=== PATIENT | male | born 1975 | race Caucasian/White ===

== ENCOUNTER 2020-11-28 13:33 | Emergency (ER) | payer OTHER, SELFPAY ==
[2020-11-28 13:49] VITALS: BP 126/83; PULSE 77; RESP 16; TEMP 36.9; O2SAT 96; BMI 30.4
[2020-11-28 15:08] VITALS: O2SAT 96
--- NOTE | 2020-11-28 15:08 | ECG_ITS ---
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 Measurements Intervals [place] Rate: 68 P: 37 HI: 172 QRS: 5 QRSD: 95 T: 31 QT: 341 QTc: 363 Interpretive Statements SINUS RHYTHM POSSIBLE INFERIOR MYOCARDIAL INFARCTION [30 ms Q WAVE IN II/aVF], OF INDETERMINATE AGE No previous ECG available for comparison Electronically Signed On 11-29-2020 7:23:16 CDT by Ernestina Moreno M.D. [email or web address] Internationalveterans health administrationHunington Properties/store/NU/[id number] f
--- NOTE | 2020-11-28 15:08 | XR_ITS ---
WS: [id number] PORTABLE CHEST HISTORY: chest pain COMPARISON: None available. Lungs are clear and well expanded. No pleural effusion or pneumothorax. Cardiac size: Normal. Mediastinum/Aorta: Normal mediastinum. Healed rib fractures in the posterior mid RIGHT thorax. XR/XR chest 1V portable [id number] IMPRESSION: Unremarkable portable chest.
--- NOTE | 2020-11-28 15:19 | W.ED.CHESTPA ---
HPI - Chest Pain General: Chief Complaint: Chest Pain Stated Complaint: CHEST PAIN, SOB Time Seen by Provider: 11/28/20 15:08 History of Present Illness: HPI narrative: 45-year-old male presents emergency room with complaints of chest pain. Began while he was at work he denies nausea or vomiting no diaphoresis was a dull ache by the time he arrived here he has not had any shortness of breath or cough no diarrhea no anosmia. Pain did not radiate into his neck or his arm. He has not previously had episodes like this it has decreased since that initially began. He has not noticed anything that either exacerbates or relieves it. This first began this morning while he was at work. MD complaint: chest pain Onset (ago): hour(s) Timing of current episode: episodic Onset: during rest Pain location: left chest Pain radiation: none Severity: moderate Quality: tightness and aching Relieving factors: nothing Exacerbating factors: nothing Associated symptoms: Deny abdominal pain, diaphoresis, dyspnea, fever(s), leg edema, nausea, palpitations, sense of impending doom, syncope, vomiting or other Treatment prior to arrival: none Review of Systems Const: Denies: fever(s) or diaphoresis ENMT: Denies: throat pain, ear or mastoid pain, nasal discharge or nasal congestion Card: Denies: palpitations or syncope Resp: Denies: dyspnea GI: Denies: abdominal pain, nausea or vomiting : Denies: flank pain, dysuria, urinary frequency or urinary urgency Skin/Breast: Denies: rash or pruritus Physical Exam Const: COMMON NORMALS: no acute distress GENERAL APPEARANCE: cooperative and comfortable ORIENTATION/CONSCIOUSNESS: Yes awake, Yes oriented to person, Yes oriented to place and Yes oriented to time HENMT: COMMON NORMALS: normocephalic, atraumatic, hearing grossly normal bilaterally and external ears normal HEAD & SCALP: normocephalic and atraumatic EXTERNAL EAR: Yes external ears normal Neck/C-Spine: COMMON NORMALS: no JVD Resp: COMMON NORMALS: normal respiratory effort, No retractions, No use of accessory muscles and clear to auscultation bilaterally AUSCULTATION: clear to auscultation bilaterally Cardio: COMMON NORMALS: no JVD, regular rate, regular rhythm and No murmurs present (Cardio) RATE: regular rate RHYTHM: regular rhythm GI: COMMON NORMALS: Soft to palpation and No hepatosplenomegaly present AUSCULTATION: Yes normoactive bowel sounds PALPATION: Yes Soft to palpation, No Tenderness to palpation present (GI), No Guarding due to palpation present (GI) and Yes No hepatosplenomegaly present Extremity: COMMON NORMALS: normal to inspection, capillary refill normal, no clubbing, cyanosis or edema, no calf tenderness and no pedal edema Neuro: SENSORIUM/ORIENTATION: Yes oriented to person, Yes oriented to place and Yes oriented to time Skin: COMMON NORMALS: no rashes or lesions noted GENERAL SKIN EXAM: no rashes or lesions noted Course Vital Signs: Vital signs: Vital Signs Temperature 98.4 F 11/28/20 19:08 Pulse Rate 67 11/28/20 19:08 Respiratory Rate 15 11/28/20 19:08 Blood Pressure 132/93 11/28/20 19:08 Pulse Oximetry 96 11/28/20 19:08 MDM - Chest Pain MDM Narrative: Medical decision making narrative: Troponin is negative EKG is unremarkable will discharge home and set up with stress test return if has problems Lab Data: Labs: Lab Results 11/28/20 11/28/20 11/28/20 Range/Units 15:20 15:20 15:20 WBC 6.9 (4.0-10.0) 10^3/ uL RBC 5.48 H (4.1-5.3) 10^6/u L Hgb 15.8 (11.7-16.6) g/dL Hct 48.2 (42.0-52.0) % MCV 88.0 (80-94) fL MCH 28.8 (28.0-34.0) pg MCHC 32.8 (30.0-36.0) g/dL RDW 12.8 (12.1-15.1) % Plt Count 282 (130-400) 10^3/c mm MPV 9.7 (7.4-10.4) fL Neut % (Auto) 61.5 % Lymph % (Auto) 29.1 % [place] % (Auto) 5.5 % Eos % (Auto) 2.9 % Baso % (Auto) 0.7 % Neut # (Auto) 4.27 (1.8-7.7) 10^3/u L Lymph # (Auto) 2.0 (0.8-4.8) 10^3/u L [place] # (Auto) 0.4 (0.2-0.9) 10^3/u L Eos # (Auto) 0.2 (0.0-0.8) 10^3/u L Baso # (Auto) 0.1 (0.0-0.1) 10^3/u L Nucleated RBC % (a uto) 0 % Nucleated RBCs # 0.0 /100WBC Sodium Cancelled Potassium Cancelled Chloride Cancelled Carbon Dioxide Cancelled Anion Gap Cancelled BUN Cancelled Creatinine Cancelled GFR Calculation Cancelled Glucose Cancelled Calculated Osmolal ity Cancelled Calcium Cancelled Total Bilirubin Cancelled AST Cancelled ALT Cancelled Alkaline Phosphata se Cancelled Troponin T Baselin e Cancelled Troponin T 120 Min [place] (0-15) ng/L Delta Troponin T (0-10) ABS# Total Protein Cancelled Albumin Cancelled Globulin Cancelled 11/28/20 11/28/20 11/28/20 Range/Units 15:50 15:50 18:05 WBC (4.0-10.0) 10^3/ uL RBC (4.1-5.3) 10^6/u L Hgb (11.7-16.6) g/dL Hct (42.0-52.0) % MCV (80-94) fL MCH (28.0-34.0) pg MCHC (30.0-36.0) g/dL RDW (12.1-15.1) % Plt Count (130-400) 10^3/c mm MPV (7.4-10.4) fL Neut % (Auto) % Lymph % (Auto) % [place] % (Auto) % Eos % (Auto) % Baso % (Auto) % Neut # (Auto) (1.8-7.7) 10^3/u L Lymph # (Auto) (0.8-4.8) 10^3/u L [place] # (Auto) (0.2-0.9) 10^3/u L Eos # (Auto) (0.0-0.8) 10^3/u L Baso # (Auto) (0.0-0.1) 10^3/u L Nucleated RBC % (a uto) % Nucleated RBCs # /100WBC Sodium 138 Potassium 4.3 Chloride 102 Carbon Dioxide 23 Anion Gap 17.3 BUN 10 Creatinine 1.0 GFR Calculation 80.8 L Glucose 87 Calculated Osmolal ity 284 L Calcium 9.2 Total Bilirubin 0.2 AST 11 ALT 10 Alkaline Phosphata se 84 Troponin T Baselin e 6 Troponin T 120 Min [place] 6.00 (0-15) ng/L Delta Troponin T 0 (0-10) ABS# Total Protein 6.7 Albumin 4.2 Globulin 2.5 Discharge Plan Discharge Patient Disposition: Home Clinical Impression: Atypical chest pain Condition: Stable Prescriptions: New aspirin 81 mg tablet,delayed release (DR/EC) 81 mg PO DAILY Qty: 30 RF: 0 Discharge Orders: Discharge ED (Routine); Ordered 11/28/20 Ordered By: Chang Sanchez Referrals: Jack Curiel [Primary Care Provider] - Discharge Diet: Usual diet Discharge Activity: Limit activity as instructed Patient Instructions: Opioid Safety Activity Restrictions/Additional Instructions: 81 mg aspirin daily. reservation manager will call to set up a cardiac stress test. If you have recurrent chest pain return to the emergency room. Avoid any exertional activities until the stress test is completed. Stand Alone Forms: Work/School Release Coding Level of Care Code ED Nursing Staffing Coordinator for Stephanie Fwjuan Exam Comprehensive
[2020-11-28 15:29] LABS: Basophils # 0.1 10^3/uL (0.0-0.1); Basophils % 0.7 %; Eosinophils # 0.2 10^3/uL (0.0-0.8); Eosinophils % 2.9 %; Hematocrit 48.2 % (42.0-52.0); Hemoglobin 15.8 g/dL (11.7-16.6); Lymphocytes % 29.1 %; Mean Corpuscular HGB Conc 32.8 g/dL (30.0-36.0); Mean Corpuscular Hemoglobin 28.8 pg (28.0-34.0); Mean Platelet Volume 9.7 fL (7.4-10.4); Monocytes # 0.4 10^3/uL (0.2-0.9); Monocytes % 5.5 %; Neutrophils # 4.27 10^3/uL (1.8-7.7); Neutrophils % 61.5 %; Nucleated Red Blood Cells % 0 %; Platelet Count 282 10^3/cmm (130-400); Red Blood Count 5.48 10^6/uL (4.1-5.3); Red Cell Distribution Width 12.8 % (12.1-15.1); White Blood Count 6.9 10^3/uL (4.0-10.0)
[2020-11-28 16:18] LABS: Alanine Aminotransferase 10 U/L (0-41); Albumin Level 4.2 g/dL (3.5-5.2); Alkaline Phosphatase 84 IU/L (40-130); Aspartate Amino Transferase 11 U/L (0-40); Blood Urea Nitrogen 10 mg/dL (6-20); Calcium 9.2 mg/dL (8.5-10.5); Carbon Dioxide 23 mmol/L (22-29); Chloride 102 mmol/L (98-107); Globulin 2.5 g/dL (1.3-4.6); Glomerular Filtration Rate 80.8 mL/min (90-130); Glucose 87 mg/dL (65-115); Osmolality Calculated 284 mOsm/kg (285-295); Sodium 138 mmol/L (136-145); Total Bilirubin 0.2 mg/dL (0.15-1.2); Total Protein 6.7 g/dL (6.6-8.7)
[2020-11-28 16:20] LABS: Troponin(5th) Baseline 6 ng/L (0-15)
[2020-11-28 16:21] LABS: Anion Gap 17.3 (5-19); Potassium 4.3 mmol/L (3.5-5.1)
[2020-11-28 17:00] VITALS: BP 126/88; PULSE 63; RESP 19; O2SAT 95
[2020-11-28 18:39] LABS: Troponin 5 2HR Delta 0 ABS# (0-10)
[2020-11-28 19:08] VITALS: BP 132/93; PULSE 67; RESP 15; TEMP 36.9; O2SAT 96
--- NOTE | 2020-12-02 08:24 | PC.SOCIAL ---
Sent order for Exercise Treadmill stress test to [facility] Scheduling and confirmation received that it was transmitted successfully.
--- NOTE | 2020-12-02 14:35 | PC.SOCIAL ---
Verified with and she is okay with using and not [facility] for [facility]. NO need to follow up with Molly at [place].
--- NOTE | 2020-12-04 12:20 | PC.SOCIAL ---
[facility] records [facility] per request.
--- NOTE | 2020-12-17 14:46 | DCPLANNER ---
Patient had a stress test scheduled for 12.10.20 - patient did attend appointment.
== END 2020-11-28 19:10 | disposition home or self-care (01) ==
PROVIDERS: Emergency Provider Family Medicine; PCP Family Medicine
DX: R07.89 Other chest pain (principal)
CPT/HCPCS: 71045; 80053; 84484; 85025; 93005; 99284

== ENCOUNTER 2020-12-10 12:15 | Outpatient (CLI) | payer OTHER, SELFPAY ==
[2020-12-10 12:25] VITALS: BMI 30.1
--- NOTE | 2020-12-10 12:26 | ECG_ITS ---
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 Baseline heart rate was 86 beats per minute. Baseline blood pressure was 103/77 millimeters of mercury. Target heart rate was 175 beats per minute. Maximum heart rate achieved was 160, which was 91 % of the target heart rate. Maximum blood pressure was 183/96 millimeters of mercury. Total exercise time was 9 minutes 28 seconds. Maximum METs achieved was 13.5, maximum VO2 was 47.3. The reason for ending the test was maximum effort achieved. The patient complained of shortness of breath during the stress test, which then resolved at the end of the test. ELECTROCARDIOGRAM: BASELINE: Sinus rhythm, normal axis, no significant ST-T changes at the baseline noted. EXERCISE: At the peak exercise level, no significant ST-T changes suggestive of ischemia noted. RECOVERY: During the recovery period, heart rate dropped appropriately. No significant ST-T changes in the recovery suggestive of ischemia noted. CONCLUSION: 1. Exercise capacity good. 2. Heart rate response was appropriate. 3. Blood pressure response was appropriate. 4. Symptoms not suggestive of ischemia. 5. Electrocardiogram portion of the stress test was not suggestive of ischemia. Electronically Signed On 12-12-2020 14:53:06 CDT by VEDA HOPKINS [id number]
[2020-12-10 13:02] VITALS: BP 137/91; PULSE 99
== END 2020-12-10 12:16 | disposition home or self-care (01) ==
LOC: CDL 12:17
PROVIDERS: PCP Family Medicine; Visit Provider Family Medicine
DX: R07.89 Other chest pain (principal)
CPT/HCPCS: 93017

== ENCOUNTER 2021-03-05 15:34 | Outpatient (CLI) | payer OTHER, SELFPAY ==
--- NOTE | 2021-03-05 15:45 | USCV_ITS ---
Angela Dodd Age: 46 Gender: M : 1975 Exam Date: 03/05/2021 15:58 Ordering Phys: Harshil Aguayo M.D ([email or web address]) Technologist: Janelle Briggs Exam Location: [facility] [place] Indication: SHORTNESS OF BREATH BP: 125 / 70 HR: 66 Rhythm: Sinus Technical Quality: Adequate MEASUREMENTS (Male / Female) Normal Values 2D ECHO LV Diastolic Diameter PLAX 3.4 cm 4.2 - 5.9 / 3.9 - 5.3 cm LV Systolic Diameter PLAX 2.4 cm IVS Diastolic Thickness 1.8 cm 0.6 - 1.0 / 0.6 - 0.9 cm IVS Systolic Thickness 2.3 cm LVPW Diastolic Thickness 1.4 cm 0.6 - 1.0 / 0.6 - 0.9 cm LVPW Systolic Thickness 1.5 cm LVOT Diameter 2.0 cm LV Ejection Fraction 2D Teich 55.8 % LV Ejection Fraction MOD 2C 61.6 % LV Ejection Fraction 2C AL 62.2 % LA Diameter 3.1 cm LA Width 3.3 cm LA Height 3.7 cm RA Width 3.2 cm RA Height 4.3 cm Aorta at Sinotubular Diameter 3.1 cm DOPPLER AV Peak Velocity 100.0 cm/s LVOT Peak Velocity 87.7 cm/s AV Area Cont Eq vti 2.5 cm squared AV Area Cont Eq pk 2.8 cm squared MV Area PHT 2.7 cm squared Mitral E to A Ratio 0.8 MV E' Velocity 25.5 cm/s Mitral E to MV E' Ratio 4.4 Mitral E to LV E' Lateral Ratio 4.3 Mitral E to LV E' Septal Ratio 4.5 TR Peak Velocity 156.0 cm/s TR Peak Gradient 9.7 mmHg TV Peak E Velocity 46.0 cm/s Right Atrial Pressure 3.0 mmHg Pulmonary Artery Systolic Pressu 12.7 mmHg PV Peak Velocity 67.0 cm/s RV Acceleration Time 0.2 s RV Ejection Time 0.3 s RV AcT/ET 0.6 FINDINGS Left Ventricle Normal left ventricular size. LV systolic function is borderline low with EF of 45-50%. Mild global hypokinesis. Grade 1 diastolic dysfunction Right Ventricle The right ventricle is normal in size and function. Right Atrium The right atrium is normal in size. Left Atrium The left atrium is normal in size. Mitral Valve Structurally normal mitral valve without significant stenosis or prolapse. There is trace mitral regurgitation. Aortic Valve Structurally normal aortic valve without significant sclerosis or stenosis. There is no aortic regurgitation. Tricuspid Valve Structurally normal tricuspid valve without significant stenosis or regurgitation. Insufficient TR jet to calculate RVSP Pulmonic Valve Structurally normal pulmonic valve without significant stenosis. There is no pulmonic regurgitation. Pericardium Normal pericardium without effusion. Aorta Normal ascending aorta dimension. CONCLUSIONS LV systolic function is borderline low with EF of 45-50% Grade 1 diastolic dysfunction. Trace mitral regurgitation. No comparison studies are available. Harshil Aguayo MD (Electronically Signed) Final Date: 06 March 2021 13:21 S
== END 2021-03-05 15:35 | disposition home or self-care (01) ==
LOC: US 15:36
PROVIDERS: PCP Family Medicine; Visit Provider Internal Medicine
DX: R06.02 Shortness of breath (principal); R07.9 Chest pain, unspecified; I34.0 Nonrheumatic mitral (valve) insufficiency
CPT/HCPCS: 93306

== ENCOUNTER → 2021-09-23 14:04 | Outpatient (BNVA) | payer OTHER, SELFPAY | PROVIDERS: PCP Family Medicine; Referring Provider Nurse Practitioner; Visit Provider Podiatrist Foot & Ankle Surgery | DX: M76.71 Peroneal tendinitis, right leg (principal); F17.200 Nicotine dependence, unspecified, uncomplicated | CPT/HCPCS: 73630; 99203; 99204 ==

== ENCOUNTER 2022-04-04 18:24 | Emergency (ER) | payer OTHER, SELFPAY ==
[2022-04-04 18:34] VITALS: BP 139/84; PULSE 103; RESP 16; TEMP 36.5; O2SAT 97; BMI 32.6
--- NOTE | 2022-04-04 18:45 | XRR_ITS ---
PROCEDURE INFORMATION: Exam: XR Right Knee Exam date and time: 04/04/2022 8:09 PM Age: 47 years old Clinical indication: Pain; Knee; Right; Additional info: Swelling, pain TECHNIQUE: Imaging protocol: Radiologic exam of the Right knee. Views: 3 views. COMPARISON: No relevant prior studies available. FINDINGS: Bones/joints: Small joint effusion. Mild tricompartmental osteoarthritis of the knee. 9 mm calcific density along the posterior aspect of the lateral tibial plateau, perhaps reflecting a loose body in the joint, CT could potentially further evaluate this. Soft tissues: Normal. XR/XR knee RT 3V* [id number] IMPRESSION: 1. Negative for fracture or dislocation. 2. Small joint effusion. 3. Mild tricompartmental osteoarthritis of the knee. 4. 9 mm calcific density along the posterior aspect of the lateral tibial plateau, perhaps reflecting a loose body in the joint, CT could potentially further evaluate this.
--- NOTE | 2022-04-04 20:25 | ED_ITS ---
Documented by User: JONATAN Lopez 04/05/22 01:52 HPI - Extremity Problem General: Chief complaint: Extremity Problem,Nontraumatic Stated complaint: right knee pain Time Seen by Provider: 04/04/22 19:44 History of Present Illness: Patient is a 47-year-old male who comes to the ED with right knee pain and swelling. Symptoms started approximately 5 to 6 days ago. He works at a job where he does some lifting and pivoting of his right leg. During his workday approximately 5 to 6 days ago he started feeling some pain and tightness in his right knee. The next day he had some pain and swelling and he wore his knee brace and he was able to get a little bit of relief with his knee pain and swelling. A couple days ago patient's right knee pain and swelling got worse. He rates his pain currently a 9 out of 10. He is unable to completely straighten or bend right knee. He cannot weight-bear on right leg due to pain. He has some hydrocodone at home that he takes for pain. Denies any other fall or trauma to cause right knee pain. Associated symptoms: Deny chest pain, fever(s) or rash Review of Systems Const: Denies: fever(s), chills or fatigue Eyes: Denies: change in vision or eye discomfort ENMT: Denies: throat pain, odynophagia, nasal discharge or nasal congestion Card: Denies: chest pain, palpitations, edema, swelling of feet/ankles, dyspnea on exertion or orthopnea Resp: Denies: dyspnea, productive cough or non-productive cough GI: Denies: abdominal pain, nausea, vomiting, diarrhea, constipation or hematochezia : Denies: flank pain, difficulty urinating, dysuria or hematuria Musc: Reports: extremity pain (Right knee), extremity swelling (Right knee), joint swelling (Right knee) and limited range of motion (Right knee); Denies: neck pain or back pain Skin/Breast: Denies: rash or new lesions Neuro: Denies: headache(s), numbness in extremities or weakness in extremities [facility] ED PFSH: Medical History Hyperlipidemia Tobacco abuse Family History Mother CAD (coronary artery disease) Social History Smoking and tobacco status: current every day smoker smokeless tobacco Smokeless tobacco user: chewing tobacco Physical Exam Const: COMMON NORMALS: patient oriented x3 and alert GENERAL APPEARANCE: cooperative HENMT: COMMON NORMALS: normocephalic HEAD & SCALP: normocephalic MOUTH: Normal oral and palatal mucosa present THROAT: posterior oropharynx normal and uvula midline Neck/C-Spine: COMMON NORMALS: supple GENERAL: Yes normal visual inspection Resp: COMMON NORMALS: normal respiratory effort, No retractions, No use of accessory muscles and clear to auscultation bilaterally AUSCULTATION: clear to auscultation bilaterally Cardio: COMMON NORMALS: regular rate, regular rhythm, S1 normal heart sound present, S2 normal heart sound present, No gallops present (Cardio), No clicks present (Cardio), No murmurs present (Cardio) and Peripheral pulses 2+ throughout RATE: regular rate RHYTHM: regular rhythm HEART SOUNDS: S1 normal heart sound present and S2 normal heart sound present PERIPHERAL PULSES: Peripheral pulses 2+ throughout GI: COMMON NORMALS: Normal to inspection, nondistended, normoactive bowel sounds present, Soft to palpation, non-tender and no masses PALPATION: Yes Soft to palpation : COMMON NORMALS: Yes no CVA tenderness BLADDER/KIDNEY EXAM: Yes no CVA tenderness Back/Pelvis: COMMON NORMALS: no CVA tenderness Extremity: NARRATIVE EXTREMITY EXAM: Right knee?patient has visible swelling throughout right knee. Limited range of motion due to pain. No erythema or warmth noted. Tenderness to palpation of the superior and lateral aspect of knee. Neurovascular intact distally. No concern for septic joint upon exam findings. Neuro: COMMON NORMALS: patient oriented x3 SENSORIUM/ORIENTATION: Yes alert GAIT: Yes Normal gait present Skin: GENERAL SKIN EXAM: dry skin Course Vital Signs: Vital signs: Vital Signs Temperature 97.7 F 04/04/22 18:34 Pulse Rate 103 H 04/04/22 18:34 Respiratory Rate 16 04/04/22 18:34 Blood Pressure 139/84 04/04/22 18:34 Pulse Oximetry 97 04/04/22 18:34 Oxygen Delivery Me thod 04/04/22 18:34 MDM - Extremity (Nontraumatic) Medical Decision Making Patient is a 47-year-old male comes to the ED with right knee pain and swelling. Symptoms started after a repetitive twist type movement on right knee while at work several days ago. Vitals are stable. Patient is unable to bear weight on right knee and he has significant knee swelling and tenderness to the lateral aspect of the knee. Neurovascular intact. Limited range of motion due to pain. Right knee joint does not appear septic and no erythema noted. X-ray of right knee shows no acute fracture or dislocation. Does note a joint effusion and some mild tricompartmental osteoarthritis of the knee. I placed an order with case management for patient referred to Dr. Ramírez for right knee joint effusion and pain. He was told to use crutches to help with ambulation and limit weightbearing. He has a previous prescription for hydrocodone that he takes for pain and I told him to continue taking it to help with pain. Rest ice and elevate right knee. Patient understood and agreed with plan Lab Data Radiology Impressions Knee X-Ray 04/04/22 18:45 IMPRESSION: 1. Negative for fracture or dislocation. 2. Small joint effusion. 3. Mild tricompartmental osteoarthritis of the knee. 4. 9 mm calcific density along the posterior aspect of the lateral tibial plateau, perhaps reflecting a loose body in the joint, CT could potentially further evaluate this. Discharge Plan Discharge Patient Disposition: Home Clinical Impression: Effusion of right knee joint Condition: Stable Prescriptions: No Action atorvastatin 20 mg tablet 20 mg PO DAILY hydrocodone-acetaminophen 5-325 mg tablet 1 tab PO BID PRN allopurinol 100 mg tablet 100 mg PO DAILY colchicine 0.6 mg tablet 0.6 mg PO BID Narcan 4 mg/actuation spray,non-aerosol 4 mg intranasal Q2M PRN Rx Instructions: spray 1 dose into ONE nostril; alternate nostrils w each dose until help arrives cholecalciferol (vitamin D3) 25 mcg (1,000 unit) capsule 50 mcg PO DAILY cyclobenzaprine 10 mg tablet 10 mg PO BID nitroglycerin 0.4 mg tablet, sublingual 0.4 mg sublingual Q5M PRN (Reason: chest pain) Qty: 25 3RF Rx Instructions: do not exceed 3 doses per episode (DME) custom molded orthotics See Rx Instructions .Route .MEDSUPPLY Qty: 1 0RF Rx Instructions: low profile, 3/4 length aspirin 81 mg tablet,delayed release (DR/EC) 81 mg PO DAILY Qty: 30 0RF Discharge Orders: Discharge ED (Routine); Ordered 04/04/22 Ordered By: West Juares Referrals: Jack Curiel [Primary Care Provider] - Discharge Diet: Regular Discharge Activity: Limit activity as instructed and Use walker/crutches as instructed Patient Instructions: Swollen Knee Joint (ED), Knee Pain (ED) Activity Restrictions/Additional Instructions: Follow-up with medical provider as directed. Case management should be contacting you in the next several days set up an appointment with Ortho for follow-up and further evaluation of knee pain. Take medications as prescribed. Return to the ER or your medical provider if condition worsens. Please read and understand discharge instructions. Thank you for choosing [facility] for your healthcare needs today. Please realize this is an emergency room and that we are providing you with a medical screening exam and this may not be complete and all inclusive of all the testing and or work up that you may need to determine your ailment or severity of your illness. It is very important that you follow up as instructed or that you return to the Emergency Department should you have concerns or if your condition changes or worsens in any way. 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 Documented by User: Toni Conte DO 04/05/22 03:00 HPI - Extremity Problem General: Chief complaint: Extremity Problem,Nontraumatic Stated complaint: right knee pain Time Seen by Provider: 04/04/22 19:44 [facility] ED PFSH: Medical History Hyperlipidemia Tobacco abuse Family History Mother CAD (coronary artery disease) Social History Smoking and tobacco status: current every day smoker smokeless tobacco Smokeless tobacco user: chewing tobacco Course Vital Signs: Vital signs: Vital Signs Temperature 97.7 F 10/30/22 18:34 Pulse Rate 103 H 04/04/22 18:34 Respiratory Rate 16 04/04/22 18:34 Blood Pressure 139/84 04/04/22 18:34 Pulse Oximetry 97 04/04/22 18:34 Oxygen Delivery Me thod 04/04/22 18:34 MDM - Extremity (Nontraumatic) Medical Decision Making Patient is a 47-year-old male comes to the ED with right knee pain and swelling. Symptoms started after a repetitive twist type movement on right knee while at work several days ago. Vitals are stable. Patient is unable to bear weight on right knee and he has significant knee swelling and tenderness to the lateral aspect of the knee. Neurovascular intact. Limited range of motion due to pain. Right knee joint does not appear septic and no erythema noted. X-ray of right knee shows no acute fracture or dislocation. Does note a joint effusion and some mild tricompartmental osteoarthritis of the knee. I placed an order with case management for patient referred to Dr. Ramírez for right knee joint effusion and pain. He was told to use crutches to help with ambulation and limit weightbearing. He has a previous prescription for hydrocodone that he takes for pain and I told him to continue taking it to help with pain. Rest ice and elevate right knee. Patient understood and agreed with plan This patient was originally seen by Mr. Mor PA-C.? I agree with his history, evaluation, and treatment. Lab Data Radiology Impressions Knee X-Ray 04/04/22 18:45 IMPRESSION: 1. Negative for fracture or dislocation. 2. Small joint effusion. 3. Mild tricompartmental osteoarthritis of the knee. 4. 9 mm calcific density along the posterior aspect of the lateral tibial plateau, perhaps reflecting a loose body in the joint, CT could potentially further evaluate this. Discharge Plan Discharge Patient Disposition: Home Clinical Impression: Effusion of right knee joint Condition: Stable Prescriptions: No Action atorvastatin 20 mg tablet 20 mg PO DAILY hydrocodone-acetaminophen 5-325 mg tablet 1 tab PO BID PRN allopurinol 100 mg tablet 100 mg PO DAILY colchicine 0.6 mg tablet 0.6 mg PO BID Narcan 4 mg/actuation spray,non-aerosol 4 mg intranasal Q2M PRN Rx Instructions: spray 1 dose into ONE nostril; alternate nostrils w each dose until help arrives cholecalciferol (vitamin D3) 25 mcg (1,000 unit) capsule 50 mcg PO DAILY cyclobenzaprine 10 mg tablet 10 mg PO BID nitroglycerin 0.4 mg tablet, sublingual 0.4 mg sublingual Q5M PRN (Reason: chest pain) Qty: 25 3RF Rx Instructions: do not exceed 3 doses per episode (DME) custom molded orthotics See Rx Instructions .Route .MEDSUPPLY Qty: 1 0RF Rx Instructions: low profile, 3/4 length aspirin 81 mg tablet,delayed release (DR/EC) 81 mg PO DAILY Qty: 30 0RF Discharge Orders: Discharge ED (Routine); Ordered 04/04/22 Ordered By: West Juares Referrals: Jack Curiel [Primary Care Provider] - Discharge Diet: Regular Discharge Activity: Limit activity as instructed and Use walker/crutches as instructed Patient Instructions: Swollen Knee Joint (ED), Knee Pain (ED) Activity Restrictions/Additional Instructions: Follow-up with medical provider as directed. Case management should be contacting you in the next several days set up an appointment with Ortho for follow-up and further evaluation of knee pain. Take medications as prescribed. Return to the ER or your medical provider if condition worsens. Please read and understand discharge instructions. Thank you for choosing [facility] for your healthcare needs today. Please realize this is an emergency room and that we are providing you with a medical screening exam and this may not be complete and all inclusive of all the testing and or work up that you may need to determine your ailment or severity of your illness. It is very important that you follow up as instructed or that you return to the Emergency Department should you have concerns or if your condition changes or worsens in any way. 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
[2022-04-04] MEDS: oxyCODONE-APAP 5-325 mg Tablet 1 TAB PO (21:26)
--- NOTE | 2022-04-06 10:43 | DCPLANNER ---
Addendum entered by Hiwot Nunez 04/14/22 14:44: Patient had a follow up appointment scheduled for 04.12.22 with ortho - patient did attend appointment. Original Note: condominium manager had message to schedule a follow up appointment for patient with ortho. condominium manager sent patients information to the front office staff at ortho. Patients information will be printed and reviewed. Clinic will call patient with appointment information.
== END 2022-04-04 21:28 | disposition home or self-care (01) ==
PROVIDERS: Emergency Provider Physician Assistant; PCP Family Medicine
DX: M25.461 Effusion, right knee (principal); Z79.82 Long term (current) use of aspirin; E78.5 Hyperlipidemia, unspecified; F17.220 Nicotine dependence, chewing tobacco, uncomplicated
CPT/HCPCS: 73562; 99283

== ENCOUNTER → 2022-04-12 09:30 | Outpatient (BNVA) | payer OTHER, SELFPAY | PROVIDERS: PCP Family Medicine; Visit Provider Nurse Practitioner Family | DX: M25.561 Pain in right knee (principal); M25.562 Pain in left knee | CPT/HCPCS: 73560; 73565; 99214 ==

== ENCOUNTER → 2022-04-22 08:00 | Outpatient (BNVA) | payer OTHER, SELFPAY | PROVIDERS: PCP Family Medicine; Visit Provider Specialist | DX: M25.561 Pain in right knee (principal) | CPT/HCPCS: 20610; 99214; J1100; J2795; J3301 ==

== ENCOUNTER 2022-04-22 14:13 | Outpatient (CLI) | payer OTHER, SELFPAY | END 2022-04-22 14:14 | disposition home or self-care (01) | LOC: SPT 14:14 | PROVIDERS: PCP Family Medicine; Visit Provider Specialist | DX: Z46.89 Encounter for fitting and adjustment of other specified devices (principal); M25.561 Pain in right knee | CPT/HCPCS: 97760; L1832 ==

== ENCOUNTER 2022-05-06 06:00 | Outpatient (RCR) | payer OTHER, SELFPAY | END 2022-06-05 23:59 | disposition home or self-care (01) | LOC: SPT 06:00 | PROVIDERS: PCP Family Medicine; Visit Provider Specialist | DX: M25.561 Pain in right knee (principal) | CPT/HCPCS: 97032; 97110; 97112; 97161 ==

== ENCOUNTER → 2022-05-24 11:16 | Outpatient (BNVA) | payer OTHER, SELFPAY | PROVIDERS: PCP Family Medicine; Visit Provider Specialist | DX: M25.561 Pain in right knee (principal) | CPT/HCPCS: 99213 ==

== ENCOUNTER 2022-06-06 06:00 | Outpatient (RCR) | payer OTHER, SELFPAY | END 2022-07-06 23:59 | disposition home or self-care (01) | LOC: SPT 06:00 | PROVIDERS: PCP Family Medicine; Visit Provider Specialist | DX: M25.561 Pain in right knee (principal) | CPT/HCPCS: 97032; 97110; 97112 ==

== ENCOUNTER 2022-07-26 12:20 | Outpatient (CLI) | payer OTHER, SELFPAY ==
--- NOTE | 2022-07-26 12:42 | IR_ITS ---
WS: [id number] RIGHT ARTHROGRAM (FLUOROSCOPY) RIGHT arthrogram was performed in fluoroscopy prior to MRI evaluation. HISTORY: knee pain COMPARISON: No similar studies. Procedure, risks and complications were explained to the patient. Complications include but not limit ed to bleeding, infection and contrast reaction. Current medications are reviewed. Skin is cleansed with ChloraPrep. Skin is anesthetized with 1% buffered lidocaine. 22-gauge needle is inserted into the RIGHT knee joint. Patient has a large joint effusion which was noted on the MRI ju st prior to the arthrogram. Did attempt to aspirate this joint effusion. 10 cc of bloody fluid are re moved. Approximately 30 cc of gadolinium mixture injected without complication. Patient will proceed to MRI evaluation immediately. No complications were encountered. Patient is instructed to watch for post procedure infection or ble eding. Patient is also instructed to contact the radiology department with any concerns. IR/[place] [id number] IMPRESSION: Uncomplicated RIGHT joint injection prior to MRI arthrogram.
--- NOTE | 2022-07-26 12:42 | MR_ITS ---
WS: [id number] MRI right knee arthrogram, pre and postcontrast imaging. HISTORY: No specific injury. Limited range of motion. COMPARISON: Prior MRI 04/09/2022. Radiographs 04/12/2022. Prearthrogram: Significant motion artifact. There is a small joint effusion which has decreased in si ze since 04/09/2022 MRI. ACL and PCL are intact. No meniscal tears are identified. Due to the motion t his is a very difficult evaluation of the menisci. There is some increased signal in the posterior me dial horn but does not extend to an articular surface. There is a very small amount of edema in the l ateral femoral condyle. No fracture. The edema appears to have slightly improved since 04/09/2022. Rui y difficult evaluation of the medial and lateral collateral ligaments. Post arthrogram: Good distention of the joint space with contrast. There is a well-circumscribed 9 mm loose body posterior to the medial knee. This is not in bed in the gastrocnemius to suggest fabella. These are typically seen in the lateral head of the gastrocnemius. There is surrounding fluid. The d onor site is not evident. There is contrast extending into the cartilage along the posterior surface of patella, greatest later ally. Again this is difficult to evaluate due to extensive motion artifact. MR/MR knee RT wo/w con [id number] IMPRESSION: 1. Significant limitations of this MRI arthrogram due to motion artifact. 2. Small amount of marrow edema lateral femoral condyle. 3. 9 mm loose body posterior to the medial femoral condyle. Donor site is not e vident. This is not embedded in a gastrocnemius tendon or muscle. 4. Contrast extending into the cartilage of the lateral patellar facet. Moderat e chondromalacia. 5. Abnormal signal in the posterior lateral corner structures. Cannot adequatel y evaluate due to the extensive motion. 6. Small joint effusion. Improved since the prior MRI of 04/09/2022.
[2022-07-26] MEDS: gadobenate dimeglumine 20 mL vial XX (14:16)
[2022-07-26] MEDS: iohexol 240 mg/mL 50 mL Btl INTRA-ARTI (14:18)
== END 2022-07-26 12:21 | disposition home or self-care (01) ==
LOC: RAD 12:20
PROVIDERS: PCP Nurse Practitioner; Visit Provider Specialist
DX: M25.461 Effusion, right knee (principal); M22.41 Chondromalacia patellae, right knee; R93.6 Abnormal findings on diagnostic imaging of limbs
CPT/HCPCS: 27369; 73723; 77002; A9577; Q9966

== ENCOUNTER 2022-07-28 16:05 | Outpatient (CLI) | payer OTHER, SELFPAY | END 2022-07-28 16:06 | disposition home or self-care (01) | LOC: SPT 16:06 | PROVIDERS: PCP Nurse Practitioner; Visit Provider Specialist | DX: M25.561 Pain in right knee (principal) | CPT/HCPCS: 99213 ==

== ENCOUNTER 2022-08-04 06:00 | Outpatient (RCR) | payer OTHER, SELFPAY | END 2022-08-25 23:59 | disposition home or self-care (01) | LOC: SPT 06:00 | PROVIDERS: PCP Nurse Practitioner; Visit Provider Specialist | DX: M25.561 Pain in right knee (principal) | CPT/HCPCS: 97110 ==

== ENCOUNTER 2022-09-08 06:00 | Outpatient (RCR) | payer OTHER, SELFPAY | END 2022-10-03 23:59 | disposition home or self-care (01) | LOC: SPT 06:00 | PROVIDERS: Visit Provider Orthopaedic Surgery | DX: Z47.89 Encounter for other orthopedic aftercare (principal); Z98.890 Other specified postprocedural states; M25.561 Pain in right knee | CPT/HCPCS: 97110; 97161 ==

== ENCOUNTER 2022-10-04 06:00 | Outpatient (RCR) | payer OTHER, SELFPAY | END 2022-11-03 23:59 | disposition home or self-care (01) | LOC: SPT 06:00 | PROVIDERS: Visit Provider Orthopaedic Surgery | DX: Z98.890 Other specified postprocedural states (principal); M62.81 Muscle weakness (generalized) | CPT/HCPCS: 97110; 97530 ==

== ENCOUNTER 2022-11-04 06:00 | Outpatient (RCR) | payer OTHER, SELFPAY | END 2022-12-03 23:59 | disposition home or self-care (01) | LOC: SPT 06:00 | PROVIDERS: Visit Provider Orthopaedic Surgery | DX: Z98.890 Other specified postprocedural states (principal) | CPT/HCPCS: 97110 ==

== ENCOUNTER 2022-12-04 06:00 | Outpatient (RCR) | payer OTHER, SELFPAY | END 2023-01-03 23:59 | disposition home or self-care (01) | LOC: SPT 06:00 | PROVIDERS: PCP Radiology Radiation Oncology; Visit Provider Orthopaedic Surgery | DX: Z98.890 Other specified postprocedural states (principal) | CPT/HCPCS: 97110 ==

== ENCOUNTER 2023-01-04 06:00 | Outpatient (RCR) | payer OTHER, SELFPAY | END 2023-02-03 23:59 | disposition home or self-care (01) | LOC: SPT 06:00 | PROVIDERS: PCP Radiology Radiation Oncology; Visit Provider Orthopaedic Surgery | DX: Z98.890 Other specified postprocedural states (principal) | CPT/HCPCS: 97110 ==

== ENCOUNTER 2023-02-04 06:00 | Outpatient (RCR) | payer OTHER, SELFPAY | END 2023-02-24 23:59 | disposition home or self-care (01) | LOC: SPT 06:00 | PROVIDERS: PCP Radiology Radiation Oncology; Visit Provider Orthopaedic Surgery | DX: Z98.890 Other specified postprocedural states (principal) | CPT/HCPCS: 97110 ==

== ENCOUNTER 2024-11-16 08:19 | Outpatient (CLI) | payer OTHER, SELFPAY ==
--- NOTE | 2024-11-16 08:23 | MR_ITS ---
WS: [id number] MRI HEAD WITH CONTRAST TECHNIQUE: Sagittal T1, T2 axial, T2 axial FLAIR, axial susceptibility weighted imaging, axial diffusion weighted images, and coronal T2 images were obtained. Pre and post-T1 axial and post T1 coronal images. ADC and FSPGR images. CLINICAL INFORMATION: POSITIVE ROMBERG/DIMINISHED R PLASTICATOR STRENGTH COMPARISON: None. FINDINGS: No evidence of restricted diffusion to suggest acute ischemia. Ventricular system and basal cisterns are patent. No suspicious intracranial signal abnormalities. Normal posterior fossa. Normal vascular flow voids at the skull base. No extra-axial fluid collections. Mild mucosal thickening in the ethmoid air cells. Mastoid air cells are well aerated. No hemosiderin on the susceptibly weighted imaging. Normal optic chiasm and pituitary infundibulum. No abnormal gadolinium enhancement. Normal dural venous sinuses. MR/MR head wo/w con [id number] IMPRESSION: 1. No evidence of restricted diffusion to suggest acute ischemia. 2. No suspicious intracranial signal abnormalities. 3. No hemosiderin. 4. No abnormal gadolinium enhancement.
[2024-11-16] MEDS: gadobenate dimeglumine 20 mL vial 17 ML IV (09:00)
== END 2024-11-16 08:20 | disposition home or self-care (01) ==
PROVIDERS: PCP Radiology Radiation Oncology; Visit Provider Nurse Practitioner
DX: J32.2 Chronic ethmoidal sinusitis (principal)
CPT/HCPCS: 70553

== ENCOUNTER → 2024-12-18 08:36 | Outpatient (BNVA) | payer OTHER, SELFPAY | PROVIDERS: PCP Radiology Radiation Oncology; Referring Provider Nurse Practitioner; Visit Provider Specialist | DX: R20.0 Anesthesia of skin (principal); R20.2 Paresthesia of skin; M79.641 Pain in right hand; M79.642 Pain in left hand | CPT/HCPCS: 95911 ==